=== PATIENT | female | born 1990 | race Caucasian/White ===

== ENCOUNTER 2019-06-18 17:15 | Outpatient (CLI) | payer OTHER ==
[~2019-06-18] VITALS: Ht 162.6 cm; Wt 99.0 kg
[~2019-06-18 17:15] MED LIST: ACET1TAB40 PO; BACTDS PO; CEPH-443 PO; CLIN300C10 PO; DOXY100T20 PO; HYDR-3498 PO
[2019-06-18 18:16] VITALS: Ht 162.6 cm; Wt 99.0 kg
[2019-06-18 18:17] VITALS: BP 110/58; PULSE 92; RESP 20
== END 2019-06-18 21:20 | disposition home or self-care (01) ==
LOC: OBT 17:15 → L-D 17:16 → OBT 21:20
PROVIDERS: ATTEND Obstetrics & Gynecology Gynecology
DX: O26.892 Other specified pregnancy related conditions, second trimester (principal); Z3A.21 21 weeks gestation of pregnancy; N89.8 Other specified noninflammatory disorders of vagina
CPT/HCPCS: 76815; 76817; 81001; Z7500; G0463